=== PATIENT | female | born 1945 | race Caucasian/White ===

== ENCOUNTER 2016-11-27 11:04 | Observation (INO) ==
[2016-11-27] MEDS ORDERED: Ondansetron 4 MG/2 ML VIAL IVP ONE (11:34)
[2016-11-27] MEDS ORDERED: 0.9 % Sodium Chloride 1,000 ML IVC ONE (11:34)
[2016-11-27] MEDS ORDERED: diazePAM 10 MG/2 ML SYRINGE IVP ONE (11:35)
--- NOTE | 2016-11-27 12:46 | Emergency Department Note ---
Disposition Clinical Impression: Chronic vertigo Disposition: Home, Self-Care Condition: Fair Time of Disposition: 15:13 Dizziness HPI - General Chief Complaint: ED Dizziness Stated Complaint: "Vertigo" Time Seen by Provider: 11/27/16 11:21 Source: patient Limitations: no limitations Nursing Notes Reviewed: Yes Vital Signs Reviewed: Yes - History of Present Illness HPI Narrative: Mrs. Nicholson, a 71yo female with hx BPPV presents with concerns regarding vertigo. Onset 4 days ago and progressive. She describes the room spinning. Worse with movement of her head to the right. She has associated nausea and decreased by mouth intake. It feels identical to previous episodes of her BPPV. She has been previously evaluated by multiple specialists. Her symptoms were not improved with home dose of meclizine. She does have a headache relieved with Advil. She has been previously managed with otolithic maneuvers with no improvement and actual worsening of her symptoms. ROS: Positive: Dizziness, nausea, decreased by mouth intake Negative: Fever, chills, changes in vision, neck pains, chest pain, dyspnea, diaphoresis, back pain, abdominal pain, weakness, numbness, tingling. - Related Data Home Medications Medication Instructions Recorded Confirmed Levothyroxine [Synthroid] 50 mcg PO 0630 11/27/16 11/27/16 Pravastatin Sodium 10 mg PO HS 11/27/16 11/27/16 hydroCHLOROthiazide 25 mg PO DAILY 11/27/16 11/27/16 [Hydrochlorothiazide] Allergies Allergy/AdvReac Type Severity Reaction Status Date / Time codeine AdvReac Nausea Verified 11/27/16 14:35 tramadol AdvReac Gastrointestinal Verified 11/27/16 11:15 Upset All systems ED: reviewed and negative except as stated. Past Medical History - Past Medical History Medical history: Reports: hyperlipidemia, hypertension, thyroid disease Psychiatric history: Reports: no psych history - Social History Smoking Status: Never smoker Smokeless Tobacco Status: No Alcohol use: Reports: none Drug use: Reports: none Physical Exam Vital Signs Reviewed General: Patient is alert, oriented, and in no acute distress. She is lying still in bed with a wash cloth covering her eyes. HEENT: No facial asymmetry. Head is normocephalic and atraumatic. PERRLA. EOMI. Trachea midline. Cardiovascular: Heart regular rate and rhythm without clicks, rubs, gallops, or murmurs. No JVD. PMI nondisplaced. Respiratory: Symmetric chest rise with good respiratory effort. Bilateral breath sounds are clear without wheezing, crackles, or rhonchi. Abdomen: Bowel sounds present normoactive x-4 quadrants. Abdomen is soft, nondistended, and nontender. No organomegaly noted. Musculoskeletal: Muscle strength 5/5 and symmetric bilaterally in upper and lower extremities. Neuro: Cranial nerves II through XII without deficit. Sensation light touch intact. Psych: Patient's affect is appropriate for situation. - General Limitations: no limitations General appearance: alert Course Course Narrative: Patient presents with vertiginous symptoms identical to her history of BPPV. They were abrupt in onset and progressive, severe. I do not have a clinical concern for central etiology given her history of present illness as well as her history. We will provide IV fluids given her lack of by mouth intake, Zofran for nausea, and Valium to try to improve her symptoms. Patient had marginal improvement in her symptoms with Valium and Zofran however her symptoms fully returned shortly thereafter. She received no relief with Antivert. I discussed with the patient and her discharge home versus admission to the hospital; patient does not feel safe going home at this time. Again, patient, her , and her daughters state this is not highly atypical ; she typically spontaneously improved after about 4 days however she has been hospitalized in the past for the same symptoms. I discussed the patient with the admitting hospitalist who agrees to accept the patient has no additional questions or concerns at this time. Vital Signs Temperature 97.6 F 11/27/16 11:11 Pulse Rate 62 11/27/16 11:11 Respiratory Rate 18 11/27/16 11:11 Blood Pressure 133/76 11/27/16 11:11 O2 Sat by Pulse Oximetry 98 11/27/16 11:11 Temperature 97.6 F 11/27/16 11:11 Pulse Rate 63 11/27/16 14:34 Respiratory Rate 18 11/27/16 15:01 Blood Pressure 149/80 11/27/16 15:01 O2 Sat by Pulse Oximetry 98 11/27/16 14:34 Oxygen Delivery Oxygen Delivery Room Air Dizziness - Lab Data Result diagrams: 11/27/16 13:26 11/27/16 13:26 Lab Results 11/27/16 11/27/16 11/27/16 Range/Units 13:26 13:26 13:26 WBC 14.0 H (4.3-11.1) K/mcL RBC 4.69 (3.82-4.97) M/mcL Hgb 13.7 (11.5-15.4) g/dL Hct 41.1 (35.3-44.9) % MCV 87.6 (83.0-100.0) fL MCH 29.2 (28.0-33.3) pg MCHC 33.3 (31.6-35.5) g/dL RDW 13.0 (11.5-14.5) % Plt Count 291 (140-400) K/mcL MPV 10.7 (9.4-12.4) fL Immature Gran % 0.5 (0-4) % Seg Neutrophils % 76.2 % Lymphocytes % 15.8 % Monocytes % 6.1 % Eosinophils % 0.9 % Basophils % 0.5 % Neutrophils # 10.7 H (1.6-8.9) K/mcL Lymphocytes # 2.2 (0.6-4.6) K/mcL Monocytes # 0.9 (0.0-1.3) K/mcL Eosinophils # 0.1 (0.0-0.6) K/mcL Basophils # 0.1 (0.0-0.2) K/mcL Platelet Estimate Normal (Normal) Sodium 141 (136-145) mEq/L Potassium 3.7 (3.5-4.5) mEq/L Chloride 108 (98-109) mEq/L Carbon Dioxide 24 (19-29) mEq/L BUN 12 (7-20) mg/dL Creatinine 0.77 (0.57-1.11) mg/dL Est GFR ( Amer) > 60 (> 60) Est GFR (Non-Af Amer) > 60 (> 60) BUN/Creatinine Ratio 16 (6-26) Glucose 125 H (70-99) mg/dL Calculated Osmolality 293 (280-300) Calcium 8.5 L (8.6-10.8) mg/dL Magnesium 1.7 (1.6-2.6) mg/dL Attestation Statement - Attestation Attestation: I examined this patient and my medical decision-making was reviewed with the GROUNDMAN/LINEMAN/PA/Advanced Practice Nurse/Resident Physician. I agree with the documented findings, disposition and treatment plan as described except to the extent set forth below. BPPV history. same sx today. check labs. fluids, valium, zofran,, antivert.
[2016-11-27 13:45] LABS: Basophils # 0.1 K/mcL (0.0-0.2); Basophils % 0.5 %; Eosinophils # 0.1 K/mcL (0.0-0.6); Eosinophils % 0.9 %; Hematocrit 41.1 % (35.3-44.9); Hemoglobin 13.7 g/dL (11.5-15.4); Immature Granulocytes % 0.5 % (0-4); Lymphocytes # 2.2 K/mcL (0.6-4.6); Lymphocytes % 15.8 %; Mean Corpuscular HGB Conc 33.3 g/dL (31.6-35.5); Mean Corpuscular Hemoglobin 29.2 pg (28.0-33.3); Mean Corpuscular Volume 87.6 fL (83.0-100.0); Mean Platelet Volume 10.7 fL (9.4-12.4); Monocytes # 0.9 K/mcL (0.0-1.3); Monocytes % 6.1 %; Neutrophils # 10.7 K/mcL (1.6-8.9); Platelet Count 291 K/mcL (140-400); Red Blood Count 4.69 M/mcL (3.82-4.97); Segmented Neutrophils % 76.2 %
[2016-11-27 14:00] LABS: BUN/Creatinine Ratio 16 (6-26); Blood Urea Nitrogen 12 mg/dL (7-20); Calcium 8.5 mg/dL (8.6-10.8); Carbon Dioxide 24 mEq/L (19-29); Chloride 108 mEq/L (98-109); Glucose 125 mg/dL (70-99); Osmolality,Calculated 293 (280-300); Potassium 3.7 mEq/L (3.5-4.5); Sodium 141 mEq/L (136-145); eGFR For African Americans > 60 (> 60); eGFR For Non-African Americans > 60 (> 60)
[2016-11-27 14:07] LABS: Platelet Estimate Normal (Normal)
--- NOTE | 2016-11-27 16:55 | Internal Med History&Physical ---
Date of Encounter: 11/27/16 Time of Encounter: 16:51 Assessment and Plan (1) Vertigo Current visit: Yes Status: Acute Patient presents with vertigo symptoms, appear severe lasting for 4 days now. Given her chronic similar symptoms suspected this is peripheral vertigo. However patient has risk factors for thrombotic disease including age, hypertension, dyslipidemia and never had an MRI before. I have offered patient to get an MRI because of her risk factors however patient's refused because of insurance issues. I will start the patient on meclizine and Zofran. Physical therapy occupational therapy as well as neurology to see the patient. I will get a carotid Doppler. She will receive heparin and famotidine for DVT and peptic ulcer disease prophylaxis respectively. Full code Internal Medicine - H&P: HPI Chief complaint: dizziness History of present illness: Ms. Nicholson is a 71 year old female patients with a past medical history of hypertension, dyslipidemia, benign paroxysmal positional vertigo presents to the emergency room today with a main component of dizziness. For the past 4 days patient has been having dizziness which she describes as room spinning sensation associated with the unsteadiness, nausea, vomiting. She has taken some meclizine however this is not improved her symptoms. She denies any focal weakness tingling or numbness in any extremity facial estimate your speech slenderness. Patient had multiple similar presentations before and was thought to be related to peripheral vertigo however this time symptoms last for longer duration. She denies any fevers or chills. She denies any chest pain. Patient has never had an MRI before for evaluation of her vertigo. Past Med Surg Social Fam HX - Past Medical History Medical history: hyperlipidemia, hypertension, thyroid disease Psychiatric history: no psych history - Past Surgical History Surgical History: appendectomy - Social History Smoking Status: Never smoker Smokeless Tobacco Status: No Alcohol use: none Drug use: none - Family History Mother Living Status: Hx Family Cardiac Disorders: Yes Internal Medicine - H&P: Meds Levothyroxine [Synthroid] 50 mcg PO 0630 11/27/16 [History] Pravastatin Sodium 10 mg PO HS 11/27/16 [History] hydroCHLOROthiazide [Hydrochlorothiazide] 25 mg PO DAILY 11/27/16 [History] Allergies codeine Adverse Reaction (Verified 11/27/16 14:35) Nausea tramadol Adverse Reaction (Verified 11/27/16 11:15) Gastrointestinal Upset All Systems PM: A 10-system review of systems was performed and is negative for pertinent findings except as documented above in the HPI. Review of systems: 10 point review of systems is negative except for HPI. - Constitutional Vitals: Temp Pulse Resp BP Pulse Ox 98.0 F 60 16 183/68 96 11/27/16 15:54 11/27/16 15:54 11/27/16 15:54 11/27/16 15:54 11/27/16 15:54 Exam: Gen.: patient is alert oriented times 3 cardiac: normal S1 S2 no additional sounds or murmurs chest: no active wheezing or bronchial breathing abdomen soft nontender nondistended normal bowel sounds lower extremity no swelling. Neuro: no focal weakness. patient is covering her eyes to avoid nausea and dizziness Internal Med - H&P Results - Labs CBC & Chem 7: 11/27/16 13:26 11/27/16 13:26
[2016-11-27] MEDS: *HR* Heparin 5,000 UNIT/ML VIAL SQ SCH (18:52)
[2016-11-27] MEDS ORDERED: Acetaminophen 325 MG TABLET PO ONE (21:11)
[2016-11-27 21:12] LABS: Bilirubin,Urine Negative (Negative); Blood,Urine Negative (Negative); Clarity,Urine Clear (Clear); Color,Urine Yellow (Yellow); Glucose,Urine (UA) Normal (Normal); Ketones,Urine Negative (Negative); Leukocyte Esterase,Urine Trace (Negative); Nitrite,Urine Negative (Negative); PH,Urine 6.5 pH Units (5.0-8.0); Protein,Urine Negative (Neg-Trace); Specific Gravity,Urine 1.012 (1.010-1.025); Urobilinogen,Urine Normal (Normal)
[2016-11-27 21:14] LABS: Bacteria,Urine None Seen per hpf (None-Few); Hyaline Casts,Urine None Seen per lpf (None-Few); Squamous Epithelial Cell,Urine Many per lpf (None-Few)
[2016-11-28 04:25] LABS: Basophils # 0.1 K/mcL (0.0-0.2); Basophils % 0.4 %; Eosinophils # 0.2 K/mcL (0.0-0.6); Eosinophils % 1.9 %; Hematocrit 37.3 % (35.3-44.9); Hemoglobin 12.4 g/dL (11.5-15.4); Immature Granulocytes % 0.3 % (0-4); Lymphocytes # 3.7 K/mcL (0.6-4.6); Lymphocytes % 31.3 %; Mean Corpuscular HGB Conc 33.2 g/dL (31.6-35.5); Mean Corpuscular Hemoglobin 29.3 pg (28.0-33.3); Mean Corpuscular Volume 88.2 fL (83.0-100.0); Mean Platelet Volume 9.9 fL (9.4-12.4); Monocytes # 0.9 K/mcL (0.0-1.3); Monocytes % 7.7 %; Neutrophils # 6.9 K/mcL (1.6-8.9); Platelet Count 334 K/mcL (140-400); Red Blood Count 4.23 M/mcL (3.82-4.97); Red Cell Distribution Width 13.2 % (11.5-14.5); Segmented Neutrophils % 58.4 %
[2016-11-28 04:40] LABS: BUN/Creatinine Ratio 14 (6-26); Blood Urea Nitrogen 11 mg/dL (7-20); Calcium 8.3 mg/dL (8.6-10.8); Carbon Dioxide 26 mEq/L (19-29); Chloride 108 mEq/L (98-109); Glucose 102 mg/dL (70-99); Magnesium 1.7 mg/dL (1.6-2.6); Osmolality,Calculated 292 (280-300); Potassium 3.2 mEq/L (3.5-4.5); Sodium 141 mEq/L (136-145); eGFR For African Americans > 60 (> 60); eGFR For Non-African Americans > 60 (> 60)
[2016-11-28] MEDS: *HR* Heparin 5,000 UNIT/ML VIAL SQ SCH ×2 (06:25→16:46)
[2016-11-28] MEDS: 0.9 % Sodium Chloride 1,000 ML IVC SCH ×2 (09:32→16:46)
[2016-11-28] MEDS: Ondansetron 4 MG/2 ML VIAL IVP PRN (09:34)
--- NOTE | 2016-11-28 12:21 | Carotid Imaging Report ---
Carotid Duplex Patient Name:Marilyn Nicholson Order Number:[id number] Procedure Date:11/28/2016 Date:4Age:71 yrs Gender:Female Lt BP:148 / 75 mmHg Rt.BP:151 / 72 mmHgHeart Rate: Location:[facility] Room #: 3B35 Compressor Station Chief Engineer:Gina Duarte, ZAIN, RVT Referring MD:Yusef Bueno MD predictive maintenance technician:Concepcion Yost MD:Darrell Orta MD Primary Indications:Dizziness, Vertigo Risk Factors Yes/No Diabetes No Hypertension Yes Hypercholesterolemia Yes Hx of CVA No Hx of TIA No Impressions: The bilateral carotid arteries have minimal plaque throughout. Recommendations: After imaging the patient returned to their room. Test completed on 11/28/2016 at 7:45:27 am. Findings Carotid Duplex: Right: There is nonstenotic plaque in the right bifurcation. There is irregular, heterogeneous calcified plaque. There is nonstenotic plaque in the right proximal internal carotid artery. There is irregular heterogeneous plaque. There is nonstenotic plaque in the right mid internal carotid artery. There is irregular heterogeneous plaque. The right eca has turbulent flow with plaque. There is smooth homogeneous plaque. There is antegrade spectral Doppler flow patterns in the right vertebral artery. Left: There is nonstenotic plaque in the left distal common carotid artery. There is smooth homogeneous plaque. There is nonstenotic plaque in the left bifurcation. There is smooth homogeneous plaque. There is nonstenotic plaque in the left proximal internal carotid artery. There is smooth homogeneous plaque. The left eca has turbulent flow with plaque. There is smooth homogeneous plaque. There is antegrade spectral Doppler flow patterns in the left vertebral artery. Prior Study: No prior study available for comparison. Carotid Results Right PSV EDV Assessment Proximal CCA 112 23 Normal Mid CCA 96 20 Normal Distal CCA 99 24 Normal Bifurcation 89 24 Non Stenotic Plaque Proximal ICA 68 21 Non Stenotic Plaque Mid ICA 116 31 Non Stenotic Plaque Distal ICA 102 31 Normal ECA 156 17 Turbulent Flow Vertebral Artery 31 9 Antegrade Flow Left PSV EDV Assessment Proximal CCA 103 20 Normal Mid CCA 120 22 Normal Distal CCA 102 20 Non Stenotic Plaque Bifurcation 80 15 Non Stenotic Plaque Proximal ICA 79 22 Non Stenotic Plaque Mid ICA 98 24 Normal Distal ICA 50 13 Normal ECA 167 13 Turbulent Flow Vertebral Artery 74 13 Antegrade Flow Ratio's Right ICA/CCA Ratio: 1.21 ICA/CCA Values: 116/96 Left ICA/CCA Ratio: 0.82 ICA/CCA Values: 98/120 Updated by Darrell Orta MD on 11/28/2016 12:17:25 PM electronically signed on 11/28/2016 12:17:37 PM with status of Final
--- NOTE | 2016-11-28 13:30 | Event Note ---
Date of Encounter: 11/28/16 Time of Encounter: 09:35 Patient was seen and assessed at 9:35 AM. She is resting quietly in the room with her eyes closed, at bedside. She reports a spinning sensation since [place] morning at 7 AM. She has prior history of this every 4-5 years that usually last 3-5 days. Has been reported has taken as long as 7 days for symptoms to resolve. She has been seen by ENT specialists before, states that nothing has ever worked. She has had Gaurav's maneuvers without relief and has been states, "they really messed her up for several days after." It was recommended by admitting physician that pt have an MRI, however, declined due to cost. The nurses and secretary book keeper worked hard to find an answer to how much the pt would be billed for the MRI and pt and family decided to proceed with MRI. Pt is able to speak and appears to have no weakness or neurological deficits, is able to open her eyes and does not have nystagmus, EOMI. Pt has not been able to get up due to spinning feeling and dizziness. Pt states that whe she does have this, the only thing that really helps is just waiting on symptoms to ralph on their own. S1 and S2 are heard, no gallops, clicks, or murmurs. Lungs are clear without rales, ronchi, or wheezing, respirations are unlabored. Abd is soft ,rounded, and non-tender to palpation with BS present. There is no peripheral edema and peripheral pulses are +2 BUE and BLE. PT is alert and oriented, speech is clear , skin is p/w/d. MRI results are pending. Carotid dopplers done this a.m. and reveal bilateral carotid arteries have minimal plaque throughout. Labs are WNL other than potassium that will be corrected with po supplements. Will continue to monitor and wait for testing results.
--- NOTE | 2016-11-28 19:01 | Electrocardiograph Report ---
[address] [address] Test Date: 2016-11-27 Pat Name: Marilyn Nicholson Department: 113 Room: 3B Gender: F Courtesy Van Driver: HEIDI : 1945 Requested By: Charlene Riggs Order Number: [id number] Reading MD: Salima Bolden Measurements Intervals [place] Rate: 61 P: 42 CO: 176 QRS: -31 QRSD: 133 T: -15 QT: 434 QTc: 436 Interpretive Statements SINUS RHYTHM MARKED LEFT AXIS DEVIATION INTRAVENTRICULAR CONDUCTION DELAY MODERATE VOLTAGE CRITERIA FOR LVH, CONSIDER NORMAL VARIANT Electronically Signed On 11-28-2016 18:59:51 EDT by Salima Bolden
[2016-11-29] MEDS: 0.9 % Sodium Chloride 1,000 ML IVC SCH ×2 (05:32→09:25)
[2016-11-29 05:48] LABS: Basophils # 0.1 K/mcL (0.0-0.2); Basophils % 0.6 %; Eosinophils # 0.2 K/mcL (0.0-0.6); Eosinophils % 1.8 %; Hematocrit 39.4 % (35.3-44.9); Immature Granulocytes % 0.3 % (0-4); Lymphocytes # 3.3 K/mcL (0.6-4.6); Lymphocytes % 24.8 %; Mean Corpuscular Hemoglobin 29.3 pg (28.0-33.3); Mean Corpuscular Volume 88.9 fL (83.0-100.0); Mean Platelet Volume 11.1 fL (9.4-12.4); Monocytes # 0.9 K/mcL (0.0-1.3); Monocytes % 7.1 %; Neutrophils # 8.7 K/mcL (1.6-8.9); Platelet Count 303 K/mcL (140-400); Red Blood Count 4.43 M/mcL (3.82-4.97); Red Cell Distribution Width 12.9 % (11.5-14.5); Segmented Neutrophils % 65.4 %
[2016-11-29 06:01] LABS: BUN/Creatinine Ratio 12 (6-26); Blood Urea Nitrogen 9 mg/dL (7-20); Calcium 8.4 mg/dL (8.6-10.8); Carbon Dioxide 24 mEq/L (19-29); Chloride 112 mEq/L (98-109); Glucose 95 mg/dL (70-99); Osmolality,Calculated 294 (280-300); Potassium 3.4 mEq/L (3.5-4.5); Sodium 143 mEq/L (136-145); eGFR For African Americans > 60 (> 60); eGFR For Non-African Americans > 60 (> 60)
[2016-11-29] MEDS: *HR* Heparin 5,000 UNIT/ML VIAL SQ SCH ×2 (06:30→16:57)
[2016-11-29] MEDS: hydroCHLOROthiazide 25 MG TABLET PO SCH (09:25)
[2016-11-29] MEDS: Acetaminophen 325 MG TABLET PO PRN ×2 (09:26→16:57)
[2016-11-29] MEDS: Ondansetron 4 MG/2 ML VIAL IVP PRN (09:33)
[2016-11-29] MEDS ORDERED: *HR* Promethazine 25 MG/ML VIAL IVP PRN ×2 (15:44→16:07)
[2016-11-29] MEDS ORDERED: diazePAM 10 MG/2 ML SYRINGE IVP PRN (16:06)
--- NOTE | 2016-11-29 16:06 | Neurology - Consult Note ---
Date of Encounter: 11/29/16 Time of Encounter: 16:04 Assessment and Plan (1) BPPV (benign paroxysmal positional vertigo) Current Visit: Yes Status: Acute Patient has benign paroxysmal positional vertigo. She is a classic presentation she truly describes vertigo, symptoms are worse with movement, and improved with quiescence. She has no other cranial nerve abnormalities. She has had recurrent episodes of this. MRI scan of the head was negative. ENT evaluation was pending at the time of my assessment. Generally, benzodiazepines and antiemetics of the mainstay of treatment. I will reevaluate her at your request. Qualifiers: Laterality: unspecified laterality Qualified Code(s): H81.10 - Benign paroxysmal vertigo, unspecified ear History of Present Illness HPI: Ms. Nicholson is a 71 year old female who is being seen for neurologic consultation secondary to "dizziness" she denies onset of vertigo with associated nausea and vomiting 5 days ago. She states that she awakened from a night's sleep with these symptoms. She denies headache, she denies any cranial nerve symptoms or involvement. She denies tinnitus, denies ear pain denies hearing loss. She denies any numbness tingling and paresthesias of the arms or legs. She denies any visual changes. She has had an MRI scan of the brain which did reveal some minor chronic ischemic deep white matter changes however did not reveal evidence of an acute infarct. She has had previous episodes of this nature. She is laying in bed and states that her symptoms are worse if she moves. Symptoms are improved with quiescence. She also feels that the symptoms are worse whenever she lies on her right side. Past Med Surg Social Fam HX - Past Medical History Medical history: hyperlipidemia, hypertension, thyroid disease Psychiatric history: no psych history - Past Surgical History Surgical History: appendectomy - Social History Smoking Status: Never smoker Smokeless Tobacco Status: No Alcohol use: none Drug use: none - Family History Mother Living Status: Hx Family Cardiac Disorders: Yes Medications and Allergies Levothyroxine [Synthroid] 50 mcg PO 0630 11/27/16 [History] Pravastatin Sodium 10 mg PO HS 11/27/16 [History] hydroCHLOROthiazide [Hydrochlorothiazide] 25 mg PO DAILY 11/27/16 [History] Allergies codeine Adverse Reaction (Verified 11/27/16 14:35) Nausea tramadol Adverse Reaction (Verified 11/27/16 11:15) Gastrointestinal Upset All Systems: A 10-system review of systems was performed and is negative for pertinent findings except as documented above in the HPI. Review of Systems: Review of systems is consistent with the history of present illness and otherwise negative. Physical Examination - Vital Signs Vital Signs: Initial Vital Signs Temp Pulse Resp BP Pulse Ox 97.6 F 62 18 133/76 98 11/27/16 11:11 11/27/16 11:11 11/27/16 11:11 11/27/16 11:11 11/27/16 11:11 - Constitutional General appearance: uncomfortable - Neurologic Detailed motor examination: grossly full strength in all extremities Motor examination - right side: 5/5: deltoids, biceps, triceps, wrist flexion, wrist extension, power equipment technology instructor, hip flexors, tibialis Anterior, quadriceps, toe extension (EHL), plantarflexion Motor examination - left side: 5/5: deltoids, biceps, triceps, wrist flexion, wrist extension, hip flexors, power equipment technology instructor, quadriceps, tibialis Anterior, toe extension (EHL), plantarflexion Detailed sensory examination: intact Reflex and gait examination: other (Deep tendon reflexes are normal.) Mental Status Examination: awake, alert, oriented to person, oriented to place, oriented to time, follows commands appropriately, answers questions appropriately, no agnosia, no aphasia, no aproxia Cranial nerve examination: PERRL, EOMI, visual hernandez intact, corneal reflexes brisk symmetrically, sensory to face intact, mastication intact, no facial asymmetry is present, no dysarthria, hearing is intact symmetrically, veritgo ( I did not attempt to reproduce her symptoms.) Cerebellar examination: no dysmetria, performs finger to nose and heel to narvaez symmetrically without ataxia, no gait ataxia, no truncal ataxia, no difficulty with rapid alternating movements Results - Laboratory Findings CBC and BMP: 11/29/16 04:45 11/29/16 04:45 Abnormal lab findings: Abnormal lab results WBC 13.2 K/mcL (4.3-11.1) H 11/29/16 04:45 Potassium 3.4 mEq/L (3.5-4.5) L 11/29/16 04:45 Chloride 112 mEq/L (98-109) H 11/29/16 04:45 Calcium 8.4 mg/dL (8.6-10.8) L 11/29/16 04:45 Ur Leukocyte Esterase Trace (Negative) H 11/27/16 21:00 Urine Microscopic RBC 3-5 per hpf (0-3) H 11/27/16 21:00 Urine Microscopic WBC 5-15 per hpf (0-3) H 11/27/16 21:00 Ur Squamous Epith Cells Many per lpf (None-Few) H 11/27/16 21:00 Consult Discharge Plan - Plan Referrals: Terry Nunez MD [Primary Care Provider] - 12/06/16 2:15 pm
--- NOTE | 2016-11-29 16:08 | Internal Med Progress Note ---
Date of Encounter: 11/29/16 Time of Encounter: 15:58 - Assessment and plan (1) Vertigo Current Visit: Yes Status: Acute Assessment and plan: Of unclear etiology neuro work up negative for any acute intracranial abnormalities Neurology input appreciated Will start Phenergan prn nausea/vomiting ENT consultation requested with Dr. Garcia, who recommended starting the patient on Valium prn Pt encouraged to get out of bed to chair with assistance and to increase activity as tolerated (2) Hypothyroidism Current Visit: Yes Status: Acute Assessment and plan: continue levothyroxine Qualifiers: Hypothyroidism type: unspecified Qualified Code(s): E03.9 - Hypothyroidism , unspecified (3) Electrolyte abnormality Current Visit: Yes Status: Acute Assessment and plan: Hypokalemia K supplemented continue to monitor electrolytes and replace as needed (4) Hypertension Current Visit: Yes Status: Chronic Assessment and plan: BP within acceptable range continue home medications Qualifiers: Hypertension type: essential hypertension Qualified Code(s): I10 - Essential (primary) hypertension (5) DVT prophylaxis Current Visit: Yes Status: Acute Assessment and plan: Heparin SQ - Subjective Interval history: Patient seen and examined with daughter present at bedside. Patient reports of not having any dizziness at rest, only with movement. States any time she moves her head or attempts to walk, she feels unsteady and wobbly. Brain MR negative for any acute intracranial abnormalities and I spoke with the neurologist given the imaging findings. ENT consultation is recommended to rule out any vestibular causes for the dizziness. Patient and family in agreement for ENT consultation. - Constitutional Vitals: Temp Pulse Resp BP Pulse Ox 97.9 F 54 16 148/69 98 11/29/16 15:40 11/29/16 15:40 11/29/16 15:40 11/29/16 15:40 11/29/16 15:40 General appearance: Present: A&O X 3, no acute distress, obese - Head Head exam: Present: atraumatic, normocephalic - Eye Eye exam: Present: EOMI, conjuntiva pink, sclera anicteric - Respiratory Respiratory exam: Present: CTAB. Absent: respiratory distress, wheezes - Cardiovascular Cardiovascular exam: Present: RRR, +S1, +S2. Absent: diastolic murmur, gallop, rubs, systolic murmur - GI/Abdominal GI/Abdominal exam: Present: normal bowel sounds, soft, no peritoneal signs. Absent: distended, tenderness - Extremities Exam Extremities exam: Present: warm, radial pulses palpable and symetrical. Absent : calf tenderness, pedal edema - Neurological Exam Neurological exam: Present: alert, oriented X3, no focal deficits. Absent: pronater drift, facial droop, speech deficit - Psychiatric Psychiatric exam: Present: normal affect, normal mood Internal Medicine: Result - Labs CBC & Chem 7: 11/29/16 04:45 11/29/16 04:45 Labs: Short CBC 11/29/16 Range/Units 04:45 WBC 13.2 H (4.3-11.1) K/mcL Hgb 13.0 (11.5-15.4) g/dL Hct 39.4 (35.3-44.9) % Plt Count 303 (140-400) K/mcL Neutrophils # 8.7 (1.6-8.9) K/mcL BMP 11/29/16 04:45 Sodium 143 Potassium 3.4 L Chloride 112 H Carbon Dioxide 24 BUN 9 Creatinine 0.75 Glucose 95 Calcium 8.4 L Consult Discharge Plan - Plan Referrals: Terry Nunez MD [Primary Care Provider] - 12/06/16 2:15 pm
--- NOTE | 2016-11-29 16:22 | ENT - Consult Note ---
Date of Encounter: 11/29/16 Time of Encounter: 16:21 Assessment and Plan (1) BPPV (benign paroxysmal positional vertigo) Current Visit: Yes Status: Acute Patient with BPPV by history. Patient with acute spinning with head turning worse on the right. Patient with previous episodes that have resolved on its own. Patient will be previously diagnosed with BPPV in years past and was sent for vestibular therapy. In the past this has resolved on its own but recurred sporadically. Last episode was approximately 3-4 years ago. Hannah-Hallpike was performed at the bedside but was negative bilaterally. Negative Dicks Hallpike even though patient has BPPV can happen especially given the patient had anti- emetics as well as meclizine since hospitalization which can cause a false negative. The patient with extreme nausea and vomiting with these episodes that are episodic in nature which would also be consistent with BPPV. Patient is most likely positive on the right given her history of recent spinning with right head movement. Recommend treating symptomatically with Valium and antiemetic medications. Once patient is stable from a symptom standpoint she can be discharged with follow-up to physical therapy, specifically vestibular therapy on [facility] with [facility] vestibular therapist or another vestibular therapist if out-of-town location is desired. Would treat patient with Valium may milligrams by mouth every 8 hours when necessary spinning vertigo. I will check patient in a.m. to see if her symptoms have improved. Qualifiers: Laterality: unspecified laterality Qualified Code(s): H81.10 - Benign paroxysmal vertigo, unspecified ear History of Present Illness Consult date: 11/29/16 Reason for ENT Consult: vertigo Requesting physician: Jessica Menard History of present illness: Patient is a 71-year-old female that presented to the hospital after a severe spinning episode 6 days ago. Patient with history of similar episodes in the past last time was approximately 4 years ago. Patient previously diagnosed with BPPV and has a attended vestibular therapy. Previous episodes of this spinning has resolved on its own. This episode has been severe and this lasted longer and has not improved with any of the medicines that were given. Patient was placed on meclizine. Patient been worked up by neurology and workup was negative. I was asked to evaluate this patient for her severe vertigo. Patient states that spinning is worse when turning to the right especially when lying in bed. Patient states when spinning starts she will A Dinh turns her head back to the straight position and spinning will resolve. Patient denies any ringing in the ears or change in hearing. Patient denies any recent upper respiratory infection. Patient without any recent head trauma. Past Med Surg Social Fam HX - Past Medical History Medical history: hyperlipidemia, hypertension, thyroid disease Psychiatric history: no psych history - Past Surgical History Surgical History: appendectomy - Social History Smoking Status: Never smoker Smokeless Tobacco Status: No Alcohol use: none Drug use: none - Family History Mother Living Status: Hx Family Cardiac Disorders: Yes Medications and Allergies Levothyroxine [Synthroid] 50 mcg PO 0630 11/27/16 [History] Pravastatin Sodium 10 mg PO HS 11/27/16 [History] hydroCHLOROthiazide [Hydrochlorothiazide] 25 mg PO DAILY 11/27/16 [History] Allergies codeine Adverse Reaction (Verified 11/27/16 14:35) Nausea tramadol Adverse Reaction (Verified 11/27/16 11:15) Gastrointestinal Upset ENT Exam Initial Vital Signs Temp Pulse Resp BP Pulse Ox 97.6 F 62 18 133/76 98 11/27/16 11:11 11/27/16 11:11 11/27/16 11:11 11/27/16 11:11 11/27/16 11:11 - General physical appearance well developed, moderate distress, obese - Eyes PERRL, normal ocular movement - ENT normal pinna, normal nares, dentures, dry mucosa, Other (Tonsils atrophied) - Neck no masses, no bruits, trachea midline - Respiratory normal expansion, normal respiratory effort - Neurologic other (Jay-Hallpike negative bilaterally) Exam Initial Vital Signs Temp Pulse Resp BP Pulse Ox 97.6 F 62 18 133/76 98 11/27/16 11:11 11/27/16 11:11 11/27/16 11:11 11/27/16 11:11 11/27/16 11:11 Results - Labs 11/29/16 04:45 11/29/16 04:45 Abnormal lab results WBC 13.2 K/mcL (4.3-11.1) H 11/29/16 04:45 Potassium 3.4 mEq/L (3.5-4.5) L 11/29/16 04:45 Chloride 112 mEq/L (98-109) H 11/29/16 04:45 Calcium 8.4 mg/dL (8.6-10.8) L 11/29/16 04:45 Ur Leukocyte Esterase Trace (Negative) H 11/27/16 21:00 Urine Microscopic RBC 3-5 per hpf (0-3) H 11/27/16 21:00 Urine Microscopic WBC 5-15 per hpf (0-3) H 11/27/16 21:00 Ur Squamous Epith Cells Many per lpf (None-Few) H 11/27/16 21:00 Diabetes panel 11/29/16 Range/Units 04:45 Sodium 143 (136-145) mEq/L Potassium 3.4 L (3.5-4.5) mEq/L Chloride 112 H (98-109) mEq/L Carbon Dioxide 24 (19-29) mEq/L BUN 9 (7-20) mg/dL Creatinine 0.75 (0.57-1.11) mg/dL Glucose 95 (70-99) mg/dL Calcium 8.4 L (8.6-10.8) mg/dL Calcium panel 11/29/16 Range/Units 04:45 Calcium 8.4 L (8.6-10.8) mg/dL Pituitary panel 11/29/16 Range/Units 04:45 Sodium 143 (136-145) mEq/L Potassium 3.4 L (3.5-4.5) mEq/L Chloride 112 H (98-109) mEq/L Carbon Dioxide 24 (19-29) mEq/L BUN 9 (7-20) mg/dL Creatinine 0.75 (0.57-1.11) mg/dL Glucose 95 (70-99) mg/dL Calcium 8.4 L (8.6-10.8) mg/dL Adrenal panel 11/29/16 Range/Units 04:45 Sodium 143 (136-145) mEq/L Potassium 3.4 L (3.5-4.5) mEq/L Chloride 112 H (98-109) mEq/L Carbon Dioxide 24 (19-29) mEq/L BUN 9 (7-20) mg/dL Creatinine 0.75 (0.57-1.11) mg/dL Glucose 95 (70-99) mg/dL Calcium 8.4 L (8.6-10.8) mg/dL All other labs normal. Consult Discharge Plan - Plan Referrals: Terry Nunez MD [Primary Care Provider] - 12/06/16 2:15 pm
[2016-11-30] MEDS: *HR* Heparin 5,000 UNIT/ML VIAL SQ SCH (06:25)
[2016-11-30 06:32] LABS: Basophils # 0.1 K/mcL (0.0-0.2); Basophils % 0.6 %; Eosinophils # 0.3 K/mcL (0.0-0.6); Eosinophils % 3.2 %; Hematocrit 37.8 % (35.3-44.9); Hemoglobin 12.6 g/dL (11.5-15.4); Immature Granulocytes % 0.3 % (0-4); Lymphocytes # 3.2 K/mcL (0.6-4.6); Lymphocytes % 33.3 %; Mean Corpuscular HGB Conc 33.3 g/dL (31.6-35.5); Mean Corpuscular Hemoglobin 29.7 pg (28.0-33.3); Mean Corpuscular Volume 89.2 fL (83.0-100.0); Mean Platelet Volume 10.5 fL (9.4-12.4); Monocytes # 0.9 K/mcL (0.0-1.3); Monocytes % 9.1 %; Neutrophils # 5.2 K/mcL (1.6-8.9); Platelet Count 273 K/mcL (140-400); Red Blood Count 4.24 M/mcL (3.82-4.97); Red Cell Distribution Width 13.2 % (11.5-14.5); Segmented Neutrophils % 53.5 %
[2016-11-30 06:48] LABS: BUN/Creatinine Ratio 13 (6-26); Blood Urea Nitrogen 11 mg/dL (7-20); Calcium 8.8 mg/dL (8.6-10.8); Carbon Dioxide 22 mEq/L (19-29); Chloride 111 mEq/L (98-109); Glucose 105 mg/dL (70-99); Magnesium 1.8 mg/dL (1.6-2.6); Osmolality,Calculated 294 (280-300); Phosphorous 2.9 mg/dL (2.3-4.7); Potassium 4.2 mEq/L (3.5-4.5); Sodium 142 mEq/L (136-145); eGFR For African Americans > 60 (> 60); eGFR For Non-African Americans > 60 (> 60)
[2016-11-30 06:50] LABS: Platelet Estimate Normal (Normal)
--- NOTE | 2016-11-30 09:12 | ENT - Progress Note ---
Date of Encounter: 11/30/16 Time of Encounter: 08:25 - Assessment and Plan (1) BPPV (benign paroxysmal positional vertigo) Current Visit: Yes Status: Acute Patient with BPPV by history. Patient with acute spinning with head turning worse on the right. Patient with previous episodes that have resolved on its own. Patient will be previously diagnosed with BPPV in years past and was sent for vestibular therapy. In the past this has resolved on its own but recurred sporadically. Last episode was approximately 3-4 years ago. [place]-Hallpike was performed at the bedside but was negative bilaterally. Negative Dicks Hallpike even though patient has BPPV can happen especially given the patient had anti- emetics as well as meclizine since hospitalization which can cause a false negative. The patient with extreme nausea and vomiting with these episodes that are episodic in nature which would also be consistent with BPPV. Patient is most likely positive on the right given her history of recent spinning with right head movement. Recommend treating symptomatically with Valium and antiemetic medications. Once patient is stable from a symptom standpoint she can be discharged with follow-up to physical therapy, specifically vestibular therapy on [facility] with [facility] child vestibular therapist or another vestibular therapist if out-of-town location is desired. Would treat patient with Valium may milligrams by mouth every 8 hours when necessary spinning vertigo. Patient feeling much better this a.m. after [place]-Hallpike performed yesterday. Gaurav was not performed secondary to negative Dicks Hallpike the patient is feeling better from either the [place] Hallpike testing versus the valium that was started yesterday. If patient continues to improve or stay stable as she has now that I am okay with her being discharged home on by mouth Valium 5 mg by mouth every 8 hours when necessary vertigo with follow-up with vestibular therapy as soon as possible. My office was notified to make referral to vestibular therapist. Patient to follow up with myself or Dr. Bliss in approximately 2 weeks after discharge. Qualifiers: Laterality: unspecified laterality Qualified Code(s): H81.10 - Benign paroxysmal vertigo, unspecified ear Subjective Patient reports: feels better (Patient feeling much better sitting up in bed. Patient tolerating by mouth and keeping it down since last night. Patient has been able to ambulate the bathroom without significant dizziness. Patient with some feeling of off balance still. Patient asking when she can go home.) Objective Initial Vital Signs Temp Pulse Resp BP Pulse Ox 97.6 F 62 18 133/76 98 11/27/16 11:11 11/27/16 11:11 11/27/16 11:11 11/27/16 11:11 11/27/16 11:11 - General physical appearance well developed, well nourished, obese - Eyes normal ocular movement - ENT normal pinna, normal nares - Neurologic other (Deferred [place]-Hallpike testing and patient request) - Labs 11/30/16 06:24 11/30/16 06:24 Diabetes panel 11/30/16 Range/Units 06:24 Sodium 142 (136-145) mEq/L Potassium 4.2 (3.5-4.5) mEq/L Chloride 111 H (98-109) mEq/L Carbon Dioxide 22 (19-29) mEq/L BUN 11 (7-20) mg/dL Creatinine 0.85 (0.57-1.11) mg/dL Glucose 105 H (70-99) mg/dL Calcium 8.8 (8.6-10.8) mg/dL Calcium panel 11/30/16 Range/Units 06:24 Calcium 8.8 (8.6-10.8) mg/dL Phosphorus 2.9 (2.3-4.7) mg/dL Pituitary panel 11/30/16 Range/Units 06:24 Sodium 142 (136-145) mEq/L Potassium 4.2 (3.5-4.5) mEq/L Chloride 111 H (98-109) mEq/L Carbon Dioxide 22 (19-29) mEq/L BUN 11 (7-20) mg/dL Creatinine 0.85 (0.57-1.11) mg/dL Glucose 105 H (70-99) mg/dL Calcium 8.8 (8.6-10.8) mg/dL Adrenal panel 11/30/16 Range/Units 06:24 Sodium 142 (136-145) mEq/L Potassium 4.2 (3.5-4.5) mEq/L Chloride 111 H (98-109) mEq/L Carbon Dioxide 22 (19-29) mEq/L BUN 11 (7-20) mg/dL Creatinine 0.85 (0.57-1.11) mg/dL Glucose 105 H (70-99) mg/dL Calcium 8.8 (8.6-10.8) mg/dL Consult Discharge Plan - Plan Referrals: Terry Nunez MD [Primary Care Provider] - 12/06/16 2:15 pm
[2016-11-30] MEDS: hydroCHLOROthiazide 25 MG TABLET PO SCH (09:16)
[2016-11-30] MEDS: Acetaminophen 325 MG TABLET PO PRN (09:17)
--- NOTE | 2016-11-30 12:59 | Discharge Summary ---
Date of Encounter: 11/30/16 Time of Encounter: 12:53 - Discharge Diagnosis (1) Vertigo Priority: Primary Status: Acute (2) Hypothyroidism Priority: Secondary Status: Chronic Qualifiers: Hypothyroidism type: unspecified Qualified Code(s): E03.9 - Hypothyroidism , unspecified (3) Electrolyte abnormality Priority: Secondary Status: Resolved (4) Hypertension Priority: Secondary Status: Chronic Qualifiers: Hypertension type: essential hypertension Qualified Code(s): I10 - Essential (primary) hypertension (5) DVT prophylaxis Priority: Secondary Status: Acute - Discharge Medications Prescriptions: diazePAM [Valium] 5 mg PO Q8H PRN #20 tablet PRN Reason: Vertigo Home Medications: Levothyroxine [Synthroid] 50 mcg PO 0630 11/27/16 [History] Pravastatin Sodium 10 mg PO HS 11/27/16 [History] hydroCHLOROthiazide [Hydrochlorothiazide] 25 mg PO DAILY 11/27/16 [History] diazePAM [Valium] 5 mg PO Q8H PRN #20 tablet 11/30/16 [Rx] Allergies/Adverse Reactions: Allergies codeine Adverse Reaction (Verified 11/27/16 14:35) Nausea tramadol Adverse Reaction (Verified 11/27/16 11:15) Gastrointestinal Upset Procedures/tests Complete & Pending: Procedures Performed prior 72 hours Category Date Time Status MR head/brain wo con [MR] Routine MRI 11/28/16 13:30 Completed ECG 12 lead ECG [ECG] Routine Y 11/27/16 18:34 Completed EV carotid duplex imaging BI Routine Y 11/28/16 Completed Date of admission: 11/27/16 14:45 Primary care physician: Terry Nunez MD Consults: 11/27/16 16:48 Consult to Occupational Therapy [CONS] Routine Comment: Evaluate, develop and implement POC Reason for Consult: weakness Consult to Physical Therapy [CONS] Routine Comment: Evaluate, develop and implement POC Reason for Consult: weakness 11/29/16 08:14 Consult to Neurology [CONS] Routine Consulting Provider: Neurology [facility] Reason for Consult: vertigo Call Completed: Yes 11/29/16 15:59 Consult to ENT [CONS] Routine Consulting Provider: [facility] [place] Reason for Consult: vertigo Call Completed: Yes Discharging clinician: Jessica Menard Anticipated date of discharge: 11/30/16 - Patient Status Disposition: Home, Self-Care Condition: Good Functional capacity at discharge: independent ambulation Overall status at discharge: patient is back to baseline - Discharge Instructions Follow Up With: Terry Nunez MD [Primary Care Provider] - 12/06/16 2:15 pm Additional Instructions: Please follow up with your primary care physician within one week after your discharge from the hospital. Please follow up with ENT specialist within two weeks after your discharge from the hospital. Valium 5mg every 8 hours as needed for vertigo has been added to your home medications. Please take this medication as prescribed. Resume all home meds as prescribed by primary care physician. - Diet and Activity Activity: resume usual activities as tolerated Diet: low salt diet Hospital course: Ms. Nicholson is a 71 year old female with PMH of HTN, HLD, hypothyroidism, BPPV who was admitted for severe vertigo. She had a full neurological work up and was evaluated by neurology. Her neuro work up was negative and her presenting symptoms were contributed to vestibular etiology. ENT was consulted and patient was started on Valium along with undergoing Hannah Hallpike testing performed by the ENT specialist. Her presenting symptoms have resolved and she is ambulating well without any difficulties. She is hemodynamically stable and will be discharged to home with follow up with ENT and primary care physician. patient and both demonstrate understanding of her diagnosis and agree with the discharge care and plan. - Time Spent with Patient Total time spent providing and/or coordinating discharge services: Less than 30 minutes - Constitutional Vitals: Temp Pulse Resp BP Pulse Ox 97.5 F L 57 16 176/67 99 11/30/16 11:06 11/30/16 11:06 11/30/16 11:06 11/30/16 11:06 11/30/16 11:06 General appearance: Present: A&O X 3, no acute distress, obese - Head Head exam: Present: atraumatic, normocephalic - Eye Eye exam: Present: normal appearance, conjuntiva pink, sclera anicteric - Respiratory Respiratory exam: Present: CTAB. Absent: accessory muscle use, rales, rhonchi, wheezes - Cardiovascular Cardiovascular exam: Present: RRR, +S1, +S2. Absent: diastolic murmur, gallop, rubs, systolic murmur - GI/Abdominal GI/Abdominal exam: Present: normal bowel sounds, soft, no peritoneal signs. Absent: distended, tenderness - Extremities Exam Extremities exam: Present: warm, radial pulses palpable and symetrical. Absent : calf tenderness, pedal edema - Neurological Exam Neurological exam: Present: alert, oriented X3 - Psychiatric Psychiatric exam: Present: normal affect, normal mood
[2016-11-30 13:07] VITALS: BP 145/70
== END 2016-11-30 14:34 | disposition home or self-care (01) ==
LOC: EMEROO 11:04 → 3BNU 11:04 → SUATTDRO 14:45 → 3BNU 15:35
PROVIDERS: ADMIT Hospitalist; ATTEND Internal Medicine